=== PATIENT | male | born 1945 | race Caucasian/White ===

== ENCOUNTER 2019-04-25 17:14 | Emergency (ER) | payer OTHER ==
[~2019-04-25] VITALS: Ht 180.3 cm; Wt 102.1 kg
[2019-04-25 19:14] LABS: Basophils # (auto) 0.1 uL; Basophils % (auto) 0.7 % (0.0-2.0); Eosinophils # (auto) 0 uL; Eosinophils % (auto) 0.5 % (0.0-7.0); Hematocrit 41.6 % (41.0-53.0); Hemoglobin 13.9 g/dL (13.5-17.5); Lymphocytes # (auto) 1.3 uL; Lymphocytes % (auto) 15.9 % (10.0-50.0); Mean Corpuscular Hemoglobin 27.8 pg (28.0-32.0); Mean Corpuscular Hgb Conc. 33.4 g/dL (32.0-36.0); Mean Corpuscular Volume 83.3 fL (80.0-100.0); Monocytes # (auto) 0.6 uL; Neutrophils # (auto) 6.4 uL; Neutrophils % (auto) 75.9 % (37.0-80.0); Platelet Count (auto) 189 10^3/uL (140-450); Red Blood Cells 4.99 10^6/uL (4.5-5.90); Red Cell Distribution Width 15.2 % (11.8-14.3); White Blood Cell 8.5 10^3/uL (4.4-10.8)
[2019-04-25 19:29] LABS: Albumin 3.9 g/dL (3.4-5.0); Calcium 9.2 mg/dL (8.5-10.1); Potassium 3.9 mmol/L (3.5-5.1)
[2019-04-25 19:33] LABS: BUN/Creatinine Ratio 13.6; Bilirubin, Total 0.5 mg/dL (0.2-1.0); Total Protein 7.1 g/dL (6.4-8.2)
[2019-04-25 21:00] VITALS: BP 115/85
[2019-04-25] MEDS ORDERED: CIPROFLOXACIN HCL 500 MG TAB PO ONE (21:00)
== END 2019-04-25 21:18 | disposition home or self-care (01) ==
LOC: ER 17:14
DX: N20.0 Calculus of kidney (principal); N30.00 Acute cystitis without hematuria
CPT/HCPCS: 36415; 51702; 74176; 80053; 85025

== ENCOUNTER 2019-04-26 12:19 | Emergency (ER) | payer OTHER ==
[~2019-04-26] VITALS: Ht 180.3 cm; Wt 99.3 kg
[2019-04-26 14:50] VITALS: BP 123/69
[2019-04-26 15:26] LABS: Urine Bacteria NONE SEEN /hpf (None Seen); Urine Blood 2+ /uL (Negative); Urine Hyaline Cast FEW /lpf (0 - 2); Urine Mucus FEW (None Seen); Urine Specific Gravity 1.009 (1.001-1.035); Urine WBC 12 /hpf (0 - 3)
== END 2019-04-26 16:35 | disposition home or self-care (01) ==
LOC: ER 12:21
DX: T83.098A Other mechanical complication of other urinary catheter, initial encounter (principal); N39.0 Urinary tract infection, site not specified
CPT/HCPCS: 81001

== ENCOUNTER 2020-01-06 22:33 | Emergency (ER) | payer OTHER ==
[~2020-01-06] VITALS: Ht 180.3 cm; Wt 94.3 kg
[2020-01-07 00:03] LABS: Basophils # (auto) 0 10 ^3/uL (0-0.2); Eosinophils # (auto) 0.1 10 ^3/uL (0-0.8); Lymphocytes # (auto) 1.9 10 ^3/uL (0.4-5.4); Mean Corpuscular Hgb Conc. 31.6 g/dL (32.0-36.0); Neutrophils # (auto) 5.7 10 ^3/uL (1.6-8.6)
[2020-01-07 00:05] LABS: Basophils % (auto) 0.3 % (0.0-2.0); Eosinophils % (auto) 1.3 % (0.0-7.0); Hematocrit 38.2 % (41.0-53.0); Lymphocytes % (auto) 22.4 % (10.0-50.0); Mean Corpuscular Hemoglobin 26.2 pg (28.0-32.0); Monocytes # (auto) 0.8 10 ^3/uL (0-1.3); Monocytes % (auto) 9.2 % (0.0-12.0); Neutrophils % (auto) 66.8 % (37.0-80.0); Nucleated Red Blood Cells % 0.1 %; Platelet Count (auto) 285 10^3/uL (140-450); White Blood Cell 8.6 10^3/uL (4.4-10.8)
[2020-01-07 00:20] LABS: Albumin 3.3 g/dL (3.4-5.0); Anion Gap 5 (5-15); Blood Urea Nitrogen 17 mg/dL (7-18); Calcium 9.2 mg/dL (8.5-10.1); Carbon Dioxide 26 mmol/L (21-32); Chloride 110 mmol/L (98-107); Glucose 115 mg/dL (74-106); Potassium 3.7 mmol/L (3.5-5.1); Sodium 141 mmol/L (136-145)
[2020-01-07 00:23] LABS: Alanine Aminotransferase 14 U/L (16-61); Aspartate Aminotransferase 8 U/L (15-37); BUN/Creatinine Ratio 13.4; Blood Alcohol < 3.0 mg/dL (0-5); GFR African American 71 mL/min; GFR Non-African American 59 mL/min
[2020-01-07 00:24] LABS: Acetaminophen 19.9 ug/mL (10-30); Alkaline Phosphatase 115 U/L (45-117); Bilirubin, Total 0.3 mg/dL (0.2-1.0); Salicylate 2.4 mg/dL (2.8-20.0); Total Protein 7.3 g/dL (6.4-8.2)
[2020-01-07] MEDS ORDERED: ACETYLCYSTEINE ORAL for CIN 20%(200MG/ML) 4ML PO ONE (05:00)
[2020-01-07 05:57] LABS: Albumin 3.2 g/dL (3.4-5.0); Calcium 8.7 mg/dL (8.5-10.1); Potassium 4.3 mmol/L (3.5-5.1)
[2020-01-07 06:02] LABS: BUN/Creatinine Ratio 14.8; Bilirubin, Total 0.2 mg/dL (0.2-1.0); Total Protein 6.2 g/dL (6.4-8.2)
[2020-01-07] MEDS ORDERED: ACETYLCYSTEINE IV ONE ×2 (06:45)
[2020-01-07] MEDS ORDERED: D5W 5% IV SCH (06:45)
[2020-01-07] MEDS ORDERED: ACETYLCYSTEINE IV SCH (06:45)
[2020-01-07] MEDS ORDERED: D5W 5% IV ONE ×2 (06:45)
[2020-01-07] MEDS ORDERED: ONDANSETRON HCL 4 MG/2 ML VIAL ONE (08:45)
[2020-01-07] MEDS ORDERED: ONDANSETRON HCL 4 MG/2 ML VIAL IM ONE (09:00)
[2020-01-07 11:48] LABS: Urine Bacteria MOD /hpf (None Seen); Urine Blood 3+ /uL (Negative); Urine Mucus FEW (None Seen); Urine Specific Gravity 1.034 (1.001-1.035); Urine WBC 414 /hpf (0 - 3)
[2020-01-07 11:57] LABS: Alcohol, Urine < 3.0 mg/dL (0-10); Amphetamine Screen, Urine NEGATIVE (NEGATIVE); Barbiturate Scree,Urine NEGATIVE (NEGATIVE); Benzodiazephine Screen, Urine NEGATIVE (NEGATIVE); Cannabinoid Screen, Urine NEGATIVE (NEGATIVE); Cocaine Screen, Urine NEGATIVE (NEGATIVE); Opiate Scree,Urine NEGATIVE (NEGATIVE); Phencyclidine Screen, Urine NEGATIVE (NEGATIVE)
[2020-01-07 12:22] VITALS: BP 135/75
== END 2020-01-07 12:20 | disposition other institution (70) ==
LOC: ER 22:40
DX: T39.1X1A Poisoning by 4-Aminophenol derivatives, accidental (unintentional), initial encounter (principal); R53.1 Weakness; G89.29 Other chronic pain; J44.9 Chronic obstructive pulmonary disease, unspecified; Z87.442 Personal history of urinary calculi; Y92.89 Other specified places as the place of occurrence of the external cause
CPT/HCPCS: 36415; 80053; 80307; 80320; 80329; 81001; 85025; 93005; 96365; 96366; 96372; 99291; J0132; J2405; J7070; 96375